=== PATIENT | male | born 1940 | race Caucasian/White ===

== ENCOUNTER → 2017-11-17 | Outpatient (CLI) | payer OTHER ==
[~2017-11-17] MED LIST: IOPAMIDOL (ISOVUE-300) 100 ML BTL ONE
== END ==
LOC: FIMAGING 14:26
PROVIDERS: ATTEND Physician Assistant
DX: K59.00 Constipation, unspecified (principal); R68.81 Early satiety; K57.30 Diverticulosis of large intestine without perforation or abscess without bleeding; K80.20 Calculus of gallbladder without cholecystitis without obstruction
CPT/HCPCS: 74177; Q9967

== ENCOUNTER 2018-12-03 19:44 | Emergency (ER) | payer OTHER ==
--- NOTE | 2018-12-03 20:36 | EDPHY ---
H & P Time Seen by Provider: 12/03/18 20:02 HPI/ROS: Chief complaint. Fall HPI. 78-year-old male was out in the gardening his with his . They live in the [facility]. He lost his balance and rolled down the hill and then bounced and went over a fence and hit a rock. Hit his head. Has facial abrasions. He did not lose consciousness. He complains of neck pain and pain to the left shoulder blade area. No chest pain or shortness of breath. No abdominal pain. No injury to arms legs. Injury occurred at about 130 this afternoon. He has continuing headache and worsening neck pain. No change in his vision. He is not on blood thinners ROS 10 systems were reviewed and negative with the exception of the elements mentioned in the history of present illness Past Medical/Surgical History: Diabetes, cardiac stent Social History: , nonsmoker, no alcohol Smoking Status: Former smoker Physical Exam: General Appearance: Alert well-developed male mild distress vital signs are stable Eyes: Pupils equal and round no pallor or injection. ENT, no hemotympanum or Quinonez sign. No oral pharyngeal or dental trauma. Abrasions to the right side of his face Respiratory: There are no retractions, lungs are clear to auscultation. Cardiovascular: Regular rate and rhythm. Gastrointestinal: Abdomen is soft and nontender, no masses, bowel sounds normal. Neurological: Awake and alert, sensory and motor exams grossly normal. Skin: Warm and dry, no rashes. Musculoskeletal: Neck is diffusely tender. No T, L, S spine tenderness. Tenderness over the left scapular area Extremities symmetrical, full range of motion. Psychiatric: Patient is oriented X 3, there is no agitation. Constitutional: Initial Vital Signs Temperature (C) 36.9 C 12/03/18 19:49 Heart Rate 88 12/03/18 19:49 Respiratory Rate 16 12/03/18 19:49 Blood Pressure 169/81 H 12/03/18 19:49 O2 Sat (%) 96 12/03/18 19:49 O2 Delivery Mode Room Air Allergies/Adverse Reactions: No Known Allergies Allergy (Unverified 12/03/18 19:49) Home Medications: Medication Instructions Recorded Januvia 50 mg 12/03/18 Lansoprazole 12/03/18 SIMVASTATIN 12/03/18 glipiZIDE 12/03/18 Medical Decision Making - Diagnostics Imaging Results: Imaging Impressions Cervical Spine CT 12/03/18 20:21 Impression: 1. No acute fractures seen about the cervical spine. 2. Large hypertrophic bridging osteophytes anteriorly mid to lower cervical spine. This can be seen with underlying diffuse hepatic skeletal hyperostosis. 3. Multilevel degenerative disk disease with disk bulges and marginal osteophytes at C4-C5, C5-C6, and C6-C7 as detailed above with associated spinal and neuroforaminal stenoses. Findings discussed with Kamari Reynaga M.D. at 21:39 hour, 12/03/2018. Head CT 12/03/18 20:21 Impression: 1. No significant intracranial abnormality seen. 2. Nonspecific left maxillary sinus disease. If symptoms worsen, additional imaging may be necessary. Findings discussed with Kamari Reyanga M.D. at 21:39 hour, 12/03/2018. CT head shows no skull fracture intracranial bleeding Cervical spine CT reviewed by me and discussed with Radiology shows DJD but no evidence of fracture dislocation One-view chest x-ray shows no rib fracture, pneumothorax or scapular fracture ED Course/Re-evaluation: Re-evaluation at 10:00 p.m. Patient and I discussed imaging results. We discussed treatment plan including criteria for return importance of follow-up further evaluation. They expressed understanding and agreement Differential Diagnosis: I considered skull fracture, intracranial bleeding, cervical spine injury, scapular fracture, pneumothorax and rib fractures Departure - Departure Disposition: Home, Routine, Self-Care Clinical Impression: Multiple contusions Condition: Good Instructions: Contusion in Adults (ED) Additional Instructions: Ice to sore areas next 24 hr Ibuprofen 600 mg every 6 hr for discomfort Hydrocodone in addition if necessary for discomfort May use ibuprofen and hydrocodone together. However the hydrocodone has some Tylenol in it so do not take Tylenol and hydrocodone together Activity as tolerated Return for worsening symptoms Recheck in 2-3 days for continuing symptoms Referrals: Unknown,Unknown [Primary Care Provider] - As per Instructions
[2018-12-03] MEDS ORDERED: HYDROCOD/APAP 5/325 PREPACK#6 BTL TAKEHOME ONE (22:07)
[2018-12-03 22:22] VITALS: BP 149/106
== END 2018-12-03 22:21 | disposition home or self-care (01) ==
DX: M54.2 Cervicalgia (principal); M25.511 Pain in right shoulder; E11.9 Type 2 diabetes mellitus without complications; W17.81XA Fall down embankment (hill), initial encounter; Y93.H2 Activity, gardening and landscaping; Y92.007 Garden or yard of unspecified non-institutional (private) residence as the place of occurrence of the external cause; Z79.4 Long term (current) use of insulin